=== PATIENT | female | born 1955 | race Two or more races ===

== ENCOUNTER 2025-03-07 19:03 | Emergency (ER) | payer MEDICARE, MEDICAID ==
[~2025-03-07] VITALS: Ht 157.5 cm; Wt 92.6 kg
[2025-03-07 21:17] LABS: Hematocrit 37.2 % (36.0-46.0); Hemoglobin 12.0 g/dL (12.2-16.2); Mean Corpuscular Hemoglobin 25.8 pg (28.0-32.0); Nucleated Red Blood Cells % 0.1 %
[2025-03-07 21:19] LABS: Mean Corpuscular Volume 79.9 fL (80.0-100.0)
[2025-03-07] MEDS: ACETAMINOPHEN 500 MG TAB or CAP PO ONE (21:20)
[2025-03-07 21:27] LABS: Chloride 105 mmol/L (98-107); Potassium 4.7 mmol/L (3.5-5.1); Sodium 142 mmol/L (136-145)
[2025-03-07 21:28] LABS: Anion Gap 8 (5-15); Carbon Dioxide 29 mmol/L (20-31)
[2025-03-07 21:29] LABS: Calcium 9.2 mg/dL (8.7-10.4)
[2025-03-07 21:33] LABS: Glucose 97 mg/dL (74-106)
[2025-03-07 21:34] LABS: BUN/Creatinine Ratio 22.8 (10.0-20.0); Blood Urea Nitrogen 21 mg/dL (9-23)
--- NOTE | 2025-03-07 21:43 | DVH ---
CHEST RADIOGRAPH Indication: cp Technique: Single frontal view of the chest was obtained Comparison: None FINDINGS: Lines and Tubes: None Lungs: No focal consolidation. Pleura: No effusion. No pneumothorax. Cardiomediastinal contours: Unremarkable Bones: No acute osseous abnormality. IMPRESSION: No acute cardiopulmonary disease.
[2025-03-08 00:28] VITALS: BP 160/64; TEMP 97.8
[2025-03-08 00:44] VITALS: PULSE 64; RESP 14; O2SAT 100
--- NOTE | 2025-03-08 11:26 | ED.PDOC ---
History of Present Illness HPI Comments 69-year-old female who came to ER for palpitations. Patient does have history of hypertension arrhythmia, status post cardiac ablation. With a past few hours patient has been experiencing headaches and palpitations, associated with chest pain and dizziness, with the elevated blood pressure at 176/98 mm Hg REVIEW OF SYSTEMS: General: No fever, no chills, or fatigue HEENT: No sore throat, no earache, no congestion, no neck pain. Cardiac: (+) chest pain. (+) palpitations. Lungs: No shortness of breath, no cough. GI: No nausea, no vomiting, no diarrhea, no constipation, no abdominal pain : No dysuria, frequency, or urgency. No hematuria. Musculoskeletal: No joint pain , no joint swelling, no extremity edema. Skin: No rash, no itching. Neuro: (+) headache, (+) dizziness, no weakness EXAM: General: Awake, alert and oriented. No acute distress. Skin: Skin in warm, dry and intact. Appropriate color for ethnicity. HEENT: The head is normocephalic and atraumatic. Conjunctivae are clear without exudates or hemorrhage. Sclera is non-icteric. EOM are intact. No signs of nystagmus. Eyelids are normal in appearance without swelling or lesions. Oral mucosa is pink and moist Neck: The neck is supple with normal range of motion. No JVD. Cardiac: Heart rate and rhythm are normal. No murmurs, gallops, or rubs are auscultated. Respiratory: No signs of respiratory distress. Lung sounds are clear in all lobes bilaterally without rales, rhonchi, or wheezes. Abdominal: Abdomen is soft, non-tender without distention. Bowel sounds are present and normoactive in all four quadrants. Extremities: Upper and lower extremities are atraumatic in appearance without deformity or edema. Neurological: The patient is awake, alert and oriented to person, place, and time with normal speech. Speech is clear. There is no facial asymmetry. Psychiatric: Appropriate mood and affect. Good judgement and insight Chief Complaint: Headache Time Seen by MD: 21:02 Reviewed Notes: Nurses Notes Allergies: Coded Allergies: NO KNOWN ALLERGIES (Unverified , 03/07/25) Information Source: Patient Mode of Arrival: Ambulatory Past Medical History PAST MEDICAL HISTORY: HTN, UTI'S Past Medical History (Other): Arrhythmia Surgical History (Other): Angiogram, cardiac ablation [employer]FORMATION [employer] History: Denies all [employer] Hx Family History Family History: Reviewed,noncontributory to illness Social History Smoker: Non-Smoker Alcohol: Denies ETOH Use Drugs: Denies Drug Use Lives In: Home Was a procedure done? Was a procedure done?: No Differential Dx Considerations may include: Anemia, electrolyte imbalance, headaches, hypertension, palpitations X-Ray, Labs, Meds, VS Vital Signs Date Time Temp Pulse Resp B/P (MAP) Pulse Ox O2 Delivery O2 Flow Rate FiO2 03/08/25 00:28 97.8 64 14 160/64 (96) 100 97.8 03/07/25 19:11 82 03/07/25 19:05 98.0 85 18 156/108 97 98.0 Lab Test 03/07/25 21:53 03/07/25 21:00 Range/Units Troponin I High Sensitivity < 3 L < 3 L </=34 ng/L White Blood Count 6.5 4.4-10.8 10^3/uL Red Blood Count 4.66 4.0-5.20 10^6/uL Hemoglobin 12.0 L 12.2-16.2 g/dL Hematocrit 37.2 36.0-46.0 % Mean Corpuscular Volume 79.9 L 80.0-100.0 fL Mean Corpuscular Hemoglobin 25.8 L 28.0-32.0 pg Mean Corpuscular Hemoglobin Concent 32.3 32.0-36.0 g/dL Red Cell Distribution Width 17.3 H 11.8-14.3 % Platelet Count 250 140-450 10^3/uL Mean Platelet Volume 9.1 6.9-10.8 fL Neutrophils (%) (Auto) 47.7 37.0-80.0 % Lymphocytes (%) (Auto) 37.7 10.0-50.0 % Monocytes (%) (Auto) 10.7 0.0-12.0 % Eosinophils (%) (Auto) 2.3 0.0-7.0 % Basophils (%) (Auto) 1.6 0.0-2.0 % Neutrophils # (Auto) 3.1 1.6-8.6 10 ^3/uL Lymphocytes # (Auto) 2.4 0.4-5.4 10 ^3/uL Monocytes # (Auto) 0.7 0-1.3 10 ^3/uL Eosinophils # (Auto) 0.2 0-0.8 10 ^3/uL Basophils # (Auto) 0.1 0-0.2 10 ^3/uL Nucleated Red Blood Cells 0.1 % Sodium Level 142 136-145 mmol/L Potassium Level 4.7 3.5-5.1 mmol/L Chloride Level 105 98-107 mmol/L Carbon Dioxide Level 29 20-31 mmol/L Anion Gap 8 5-15 Blood Urea Nitrogen 21 9-23 mg/dL Creatinine 0.92 0.550-1.02 mg/dL Glomerular Filtration Rate Calc 67 >90 mL/min BUN/Creatinine Ratio 22.8 H 10.0-20.0 Serum Glucose 97 74-106 mg/dL Calcium Level 9.2 8.7-10.4 mg/dL B-Type Natriuretic Peptide 104.38 0-100 pg/mL Current Medications Medications (Trade) Dose Ordered Sig/Shanon Route Start Time Stop Time Status Last Admin Aspirin 324 mg ONCE ONCE PO 03/07/25 21:00 03/07/25 21:01 DC 03/07/25 21:21 Acetaminophen (Tylenol Tablet Or Capsule) 1,000 mg ONCE ONCE PO 03/07/25 21:00 03/07/25 21:01 DC 03/07/25 21:20 PROCEDURE(s): CXR1 - CHEST XRAY 1 VIEW REASON: cp ORDER NUMBER(s): [id number], ACCESSION NUMBER(s): [id number] CHEST RADIOGRAPH Indication: cp Technique: Single frontal view of the chest was obtained Comparison: None FINDINGS: Lines and Tubes: None Lungs: No focal consolidation. Pleura: No effusion. No pneumothorax. Cardiomediastinal contours: Unremarkable Bones: No acute osseous abnormality. IMPRESSION: No acute cardiopulmonary disease. Time of 1ST Reevaluation: 21:00 Reevaluation 1ST: Unchanged Patient Education/Counseling: Need For Follow Up Family Education/Counseling: No Family Present SEPSIS Sepsis Screen Date sepsis recognized/suspect: Mar 07, 2025 Time Sepsis recognized/suspect: 1906 Recent Procedure: No On Antibiotic Therapy: No Respiratory Rate >20: No Heart Rate >90: No Temp<36 C (96.8 F) or >38.3 C: No SBP <90 or MAP <65 mmHG: No New Acute Mental Status Change: No Is the patient on CPAP, BIPAP,: No Physician Orders Electrocardigram (03/07/25 19:08) Electrocardigram (03/07/25 20:52) Chest Xray 1 View (03/07/25 20:52) Vital Signs Q1HR (03/07/25 20:52) Saline Lock (03/07/25 20:52) Health And Wellness Manager (03/07/25 ) Electrocardigram (03/07/25 21:52) Electrocardigram (03/07/25 23:52) Vital Signs Date Time Temp Pulse Resp B/P (MAP) Pulse Ox O2 Delivery O2 Flow Rate FiO2 03/08/25 00:28 97.8 64 14 160/64 (96) 100 97.8 03/07/25 19:11 82 03/07/25 19:05 98.0 85 18 156/108 97 98.0 Laboratory Tests Test 03/07/25 21:00 White Blood Count 6.5 10^3/uL (4.4-10.8) Medications Medications Dose Ordered Sig/Shanon Route Start Time Stop Time Status Last Admin Dose Admin Acetaminophen 1,000 mg ONCE ONCE PO 03/07/25 21:00 03/07/25 21:01 DC 03/07/25 21:20 Aspirin 324 mg ONCE ONCE PO 03/07/25 21:00 03/07/25 21:01 DC 03/07/25 21:21 Departure 1 Departure Time of Disposition: 00:37 Impression: Primary Impression: Chest pain Additional Impression: Palpitations Disposition: 01 HOME / SELF CARE / HOMELESS Condition: Stable Additional Instructions: ED DISCHARGE INSTRUCTIONS Instructions: Please read all instructions provided in this packet carefully. Although you have been discharged from the Emergency Department, this does not mean that you have a "clean bill of health". No definitive diagnosis for your symptoms has been made today. It is possible that you are in the process of developing a serious illness. This is why you must return to the ED without fail if any new or worsening symptoms (especially if your symptoms include chest pain, trouble breathing, abdominal pain, fever, headache, confusion, trouble seeing, or trouble walking) It is also very important that you see a primary care provider (PCP) within the next 3-5 days to follow up. If you are unable to get an appointment, return to the ED for re-evaluation. PALPITATIONS EDUCATION Heart palpitations are the uncomfortable sensation that your heart is beating fast or irregularly. You might feel pounding or fluttering in your chest. It might feel like your heart is skipping a beat. Palpitations may be caused by a heart problem. But they also occur because of many other things. These include other health problems, stress, exercise, or use of alcohol, caffeine, or nicotine. Some prescription medicines and ove [id number] medicines can also cause heart palpitations. Nearly everyone has palpitations from time to time. Depending on your symptoms, your doctor may need to do more tests to try to find the cause of your palpitations. Follow-up care is a leija part of your treatment and safety. Be sure to make and go to all appointments, and call your doctor if you are having problems. It's a lso a good idea to know your test results and keep a list of the medicines you take. How can you care for yourself at home? If they trigger palpitations, limit or avoid alcohol or caffeine. Do not smoke. If you need help quitting, talk to your doctor about stop-smoking programs and medicines. These can increase your chances of quitting for good. Ask your doctor whether you can take fdbs-mzm-eylreed medicines (such as decongestants). These may cause palpitations. If you think you may have a problem with drug use, talk to your doctor. Certain drugs, such as cocaine and methamphetamine, can affect your heart rate and rhythm. If you have palpitations again, take deep breaths and try to relax. Or try any physical things that your doctor recommended. These may include bearing down or coughing. If you start to feel lightheaded, sit or lie down to avoid injuries that might result if you pass out and fall down. If your doctor recommends it, keep a record of your palpitations and bring it to your next doctor's appointment. Write down: The date and time. Your pulse. (If your heart is beating fast, it may be hard to count your pulse.) If your heart rhythm was regular or irregular. What you were doing when the palpitations started. How long the palpitations lasted. Any other symptoms. What may have helped your symptoms go away. If an activity causes palpitations, slow down or stop. Talk to your doctor before you do that activity again. Take your medicines exactly as prescribed. Call your doctor if you think you are having a problem with your medicine. When should you call for help? Call 911 anytime you think you may need emergency care. For example, call if: You passed out (lost consciousness). You have symptoms of a heart attack. These may include: Chest pain or pressure, or a strange feeling in the chest. Sweating. Shortness of breath. Pain, pressure, or a strange feeling in the back, neck, jaw, or upper belly or in one or both shoulders or arms. Lightheadedness or sudden weakness. A fast or irregular heartbeat. After you call 911, the stock preparation operator may tell you to chew 1 adult-strength or 2 to 4 low-dose aspirin. Wait for an ambulance. Do not try to drive yourself. You have symptoms of a stroke. These may include: Sudden numbness, tingling, weakness, or loss of movement in your face, arm, or leg, especially on only one side of your body. Sudden vision changes. Sudden trouble speaking. Sudden confusion or trouble understanding simple statements. Sudden problems with walking or balance. A sudden, severe headache that is different from past headaches. Call your doctor now or seek immediate medical care if: You have heart palpitations and: Are dizzy or lightheaded, or you feel like you may faint. Have new or increased shortness of breath. Watch closely for changes in your health, and be sure to contact your doctor if: You continue to have heart palpitations. Current as of: December 07, 2023 Author: [employer] Staff? Comments 69-year-old female with chest pain, palpitations and headache. EKG negative for signs of ischemia. High sensitivity troponin negative. CXR shows no acute process. Presentation not suggestive of acute coronary syndrome, pulmonary embolism or aortic dissection. Patient improved at time of discharge. Patient has not been hypoxic, in respiratory distress or dyspneic during the ED observation. Patient able to ambulate without difficulty. Patient felt stable for discharge to follow up with PCP promptly. Patient advised to return to the ED with any new, worsening or concerning sym ptoms or inability to follow up with PCP. Critical Care Note Critical Care Time?: No Stability Stability form required: No Heart Score Heart Score: Heart Score Response (Comments) Value History N/A 0 EKG N/A 0 Age N/A 0 Risk Factors N/A 0 Troponin N/A 0 Total 0 I personally scribed for INA HALL MD ([email or web address]) on 03/07/25 at 21:04. Electronically submitted by [facility] ([email or web address]). I personally scribed for INA HALL MD ([email or web address]) on 03/07/25 at 22:02. Electronically submitted by [facility] ([email or web address]). INA HALL MD Mar 07, 2025 21:04
--- NOTE | 2025-03-11 13:15 | ECG ---
[facility] Test Date: 2025-03-07 Test Time: 19:11:18 Pat Name: RD AGUILAR Department: Room: Gender: F Land Title Examiner: ERICA : 1955 Requested By: EMERGENCY EMERGENCY Order Number: [id number] Reading MD: Yogesh Fofana Measurements Intervals [place] Rate: 82 P: 30 MN: 202 QRS: 43 QRSD: 85 T: 47 QT: 387 QTc: 452 Interpretive Statements Sinus rhythm Probable left atrial enlargement Baseline wander in lead(s) I,III,aVL,V1,V3 Electronically Signed On 03-12-2025 13:28:28 PST by Yogesh Fofana Please click the below link to view image of tracing.
== END 2025-03-08 00:53 | disposition home or self-care (01) ==
LOC: ER 19:03
DX: R00.2 Palpitations (principal); R07.89 Other chest pain; I10 Essential (primary) hypertension; Z79.899 Other long term (current) drug therapy
CPT/HCPCS: 36415; 71045; 80048; 83880; 84484; 85025; 93005